=== PATIENT | female | born 1980 | race Caucasian/White ===

== ENCOUNTER 2018-08-02 11:49 | Outpatient (CLI) | payer OTHER ==
--- NOTE | 2018-08-02 13:17 | RAD ---
RIGHT TANKLE THREE VIEWS: HISTORY: Fall from horse one week ago with right ankle pain. TECHNIQUE: AP, lateral, and oblique views of the right ankle are obtained. FINDINGS: Images demonstrate an oblique fracture involving the distal aspect of the right fibular metaphysis. This is compatible with an acute distal right fibula fracture. There is concern that there may also be significant ligamentous and interosseous ligamentous injury. The medial malleolus is slightly med ially deviated. IMPRESSION: Distal fibular fracture. POS: [facility]
--- NOTE | 2018-08-02 13:19 | RAD ---
RIGHT FOOT THREE VIEWS: HISTORY: Fall with right foot pain. TECHNIQUE: AP, lateral, and oblique views of the right foot are obtained. FINDINGS: Images again demonstrate the distal fibular fracture. The right foot is unremarkable with no evidence of right foot fractures, subluxations, or bony lesion s. IMPRESSION: No evidence of acute right foot pathology. Please see the accompanying dictation of the right ankle. POS: [facility]
== END 2018-08-02 11:50 | disposition home or self-care (01) ==
LOC: MADRAD 11:49
PROVIDERS: ATTEND Podiatrist
DX: S99.821A Other specified injuries of right foot, initial encounter (principal); S99.822A Other specified injuries of left foot, initial encounter; M79.671 Pain in right foot; M79.672 Pain in left foot; S82.831A Other fracture of upper and lower end of right fibula, initial encounter for closed fracture